=== PATIENT | female | born 1950 | race Caucasian/White ===

== ENCOUNTER → 2016-06-26 | Outpatient (CLI) | payer BC, OTHER | LOC: CIMAGING 11:21 | PROVIDERS: ATTEND Internal Medicine | DX: R94.2 Abnormal results of pulmonary function studies (principal) | CPT/HCPCS: 71250-PO ==

== ENCOUNTER → 2017-04-13 | Outpatient (CLI) | payer BC, OTHER | LOC: FIMAGING 10:28 → EDSTATUS 10:30 | PROVIDERS: ATTEND Emergency Medicine | DX: R05 Cough (principal) ==

== ENCOUNTER → 2017-06-05 | Outpatient (CLI) | payer BC, OTHER | LOC: FIMAGING 14:20 | PROVIDERS: ATTEND Internal Medicine | DX: Z12.31 Encounter for screening mammogram for malignant neoplasm of breast (principal); Z80.3 Family history of malignant neoplasm of breast ==

== ENCOUNTER → 2017-11-02 | Outpatient (CLI) | payer BC | LOC: FIMAGING 11:09 | PROVIDERS: ATTEND Internal Medicine Endocrinology, Diabetes & Metabolism | DX: M80.08XA Age-related osteoporosis with current pathological fracture, vertebra(e), initial encounter for fracture (principal); Z79.83 Long term (current) use of bisphosphonates ==

== ENCOUNTER → 2018-02-13 | Outpatient (CLI) | payer BC | LOC: BMCIMAGING 14:47 | PROVIDERS: ATTEND Family Medicine | DX: M25.561 Pain in right knee (principal) ==

== ENCOUNTER → 2018-03-02 | Outpatient (CLI) | payer BC | LOC: FIMAGING 12:30 | PROVIDERS: ATTEND Internal Medicine | DX: G44.309 Post-traumatic headache, unspecified, not intractable (principal) ==

== ENCOUNTER → 2018-06-24 | Outpatient (CLI) | payer BC | LOC: FIMAGING 12:33 | PROVIDERS: ATTEND Internal Medicine | DX: Z12.31 Encounter for screening mammogram for malignant neoplasm of breast (principal); Z80.3 Family history of malignant neoplasm of breast ==